=== PATIENT | male | born 1955 | race Caucasian/White ===

== ENCOUNTER → 2024-01-21 | Outpatient (CLI) | payer OTHER, SELFPAY ==
--- NOTE | 2024-01-21 11:06 | MRI_ITS ---
STUDY: MR PROSTATE GLAND/ PELVIS WITH T WITHOUT CONTRAST REASON FOR EXAM: Male, 68 years old. eval for disease extent, planning for XRT PLANNING TREATMENT, GOLD MARKERS INSERTED 01/14/24, PRIOR IMAGES AND REPORTS IN PACS, 17CC CLARISCAN TECHNIQUE: Standardized fat and water weighted pulse sequences were obtained in all 3 orthogonal planes, pre-and post contrast administration. IV 17 cc clariscan was administered for the contrast portion of the examination. COMPARISON: MRI of the prostate dated November 14, 2023 FINDINGS: Prostate gland volume/size: 5.48 x 4.94 x 3.56 cm. Anterior fibromuscular stroma: Normal. Interval appearance of an ovoid fluid collection posterior to the body and base of the prostate gland directly beneath the midline of the seminal vesicles measuring 3.62 x 2.86 cm in diameter, favored to represent postbiopsy or postsurgical intervention seroma or hematoma, see image 10/24 series 8. This was not present on the prior MRI exam dated November 14, 2023. Interval appearance of a cluster of low signal/susceptibility artifact between the transitional peripheral zone just to the left of midline, most likely representing recently placed gold markers for treatment. Peripheral zone: Previously seen well formed oval low signal nodule in the posterior medial aspect and left side of the peripheral zone appears more indistinct on the current study, likely due to some recent biopsy or intervention. There is still some mild enhancement in this left peripheral zone nodular focus of tissue and the lesion demonstrates significant abnormal bright diffusion-weighted signal and associated dark ADC map signal which is indicative of malignancy. There are no additional abnormal areas of diffusion weighted uptake to suggest multifocal/multicentric malignancy. The right peripheral zone of the prostate gland is also mildly heterogeneous but no discrete nodule or mass is present. Central zone: Diffusely heterogeneous and nodular consistent with prostatic hyperplasia Transitional zone: Diffusely heterogeneous and nodular consistent with prostatic hyperplasia Prostate capsule: Intact Seminal vesicles: Low signal extending from the posterior superior aspect of the left peripheral zone involves some of the seminal vesicles in the midline and left side, suggesting infiltration/metastatic disease to these regions. The remaining seminal vesicles are unremarkable. Pelvic sidewall lymphadenopathy: None demonstrated Bony structures: No visualized marrow edema or lytic or blastic lesions of the osseous structures. Mild thickening and trabeculation of the bladder wall. No bladder masses or stones are present. Normal visualized small intestine. Normal visualized colon. There is no pelvic fluid. There is no pelvic mass lesion. Normal abdominal wall. MRI/Pelvis W/WO Contrast IMPRESSION: 1. Previously seen well formed oval low signal nodule in the posterior medial aspect and left side of the peripheral zone appears more indistinct on the current study, likely due to some recent biopsy or intervention. There is still some mild enhancement in this left peripheral zone nodular focus of tissue and the lesion demonstrates significant abnormal bright diffusion-weighted signal and associated dark ADC map signal which is indicative of malignancy. There are no additional abnormal areas of diffusion weighted uptake to suggest multifocal/multicentric malignancy. 2. PI-RADS 4: high (clinically significant cancer is likely to be present) 3. Interval appearance of an ovoid fluid collection posterior to the body and base of the prostate gland directly beneath the midline of the seminal vesicles measuring 3.62 x 2.86 cm in diameter, favored to represent postbiopsy or postsurgical intervention seroma or hematoma, see image 10/24 series 8. This was not present on the prior MRI exam dated November 14, 2023. Interval appearance of a cluster of low signal/susceptibility artifact between the transitional peripheral zone just to the left of midline, most likely representing recently placed gold markers for treatment. Reference information: Normal prostate tissue Benign prostatic hypertrophy cancer/tumor - low signal peripheral , transitional, and central zones malignancy appears as bright on DWI and low signal on ADC map Prostate imaging-reporting and data system (PI-RADS) PI-RADS 1: very low (clinically significant cancer is highly unlikely to be present) PI-RADS 2: low (clinically significant cancer is unlikely to be present) PI-RADS 3: intermediate (the presence of clinically significant cancer is equivocal) PI-RADS 4: high (clinically significant cancer is likely to be present) PI-RADS 5: very high (clinically significant cancer is highly likely to be present) PI-RADS X: component of exam technically inadequate or not performed Prostate malignancy distribution: Peripheral zone: 70-80% Transitional zone: 10-20% Central zone: 5% or less Electronically Signed: Skip Unger MD at 13:20 EST ,
[2024-01-21 12:03] LABS: CREATININE FINGERSTICK 1.2 mg/dL (0.70-1.30); EGFR FINGERSTICK > 60.0000 mL/min (>60)
== END | disposition home or self-care (01) ==
PROVIDERS: PCP Physician Assistant; Referring Provider Student in an Organized Health Care Education/Training Program; Visit Provider Student in an Organized Health Care Education/Training Program
DX: C61 Malignant neoplasm of prostate (principal)
CPT/HCPCS: 72197; A9575